=== PATIENT | female | born 1995 | race Caucasian/White ===

== ENCOUNTER 2024-05-30 08:50 | Inpatient (IN) | payer BC ==
[~2024-05-30] VITALS: Ht 162.6 cm; Wt 84.1 kg
[2024-05-30] VITALS (25 sets, daily range): BP systolic 91–160; BP diastolic 43–85; PULSE 58–95; TEMP 97.4–98.5
--- NOTE | 2024-05-30 08:55 | NUR ---
PT ARRIVES UNDER CARE OF GIACOMO (PUPPY WALKER), ATTEMPTING A HOME , BUT REQUESTING TO BE ADMITTED FOR AN EPIDURAL. 38.2. G1 L0. GBS-, LABS AVAILABLE UPON ARRIVAL. CATEGORY 1 EFM TRACING. ALVINA Q2 MINUTES. REPORTS SROM ON 05/29/24 @ 0200, CLEAR FLUID. LABS NORMAL. AVAILABLE UPON ARRIVAL. NOTIFIED, SEE PHYS NOTIFICATION.
[2024-05-30] MEDS ORDERED: ZOLOFT 50MG50 MG PO (09:01)
[2024-05-30] MEDS ORDERED: PRENATAL (09:01)
[2024-05-30] MEDS ORDERED: LR 1,000 ML IV SCH (09:15)
[2024-05-30 09:25] LABS: BASO % 0.2 % (0.0-2.0); EOS % 0.1 % (0.0-4.0); GRAN % 83.8 % (42.2-75.2); HEMATOCRIT 42.5 % (37.0-47.0); HEMOGLOBIN 14.2 g/dl (12.5-16.0); LYMPH # 1.3 K/mm3 (1.2-3.4); LYMPH % 9.6 % (20.0-51.0); MEAN CELL VOLUME 91 fl (80.0-100.0); MEAN CORPUSCULAR HEMOGLOBIN 30 pg (27-31); MEAN CORPUSCULAR HGB CONC 33 g/dl (33.0-37.0); MEAN PLATELET VOLUME 10.4 fl (7.4-10.4); MONO # 0.8 K/mm3 (0.1-0.6); MONO % 5.8 % (1.7-9.3); PLATELET COUNT 240 K/mm3 (130-400); RED BLOOD COUNT 4.67 M/mm3 (4.10-5.30); REDCELL DISTRIBUTION WIDTH-CV 12.7 % (11.5-14.5)
[2024-05-30] MEDS ORDERED: Ondansetron 4 MG/2 ML VIAL IV SCH (09:31)
[2024-05-30] MEDS ORDERED: ROPivacaine PF 0.2% 200 ML IV ONE (09:33)
--- NOTE | 2024-05-30 09:47 | NUR ---
PT TO SITTING POSITION FOR EPIDURAL PLACEMENT. JUANITA LAMAS MERCHANDISE FLOW TEAM LEADER AT BEDSIDE. DIFFICULTY TRACING EFM DUE TO MATERNAL POSITIONING 0947: TEST DOSE PER JUANITA MERCHANDISE FLOW TEAM LEADER. PT TOLERATED PROCEDURE WELL. LR BOLUS INFUSING. VSS.
[2024-05-30] MEDS ORDERED: Ondansetron 4 MG/2 ML VIAL IV PRN (10:15)
[2024-05-30] MEDS ORDERED: ePHEDrine 50 MG/10 ML VIAL IV PRN (10:15)
[2024-05-30] MEDS ORDERED: diphenhydrAMINE 50 MG/ML 1 ML VIAL IV PRN (10:15)
[2024-05-30] MEDS ORDERED: Naloxone 0.4 MG/ML VIAL IV PRN ×2 (10:15→14:45)
[2024-05-30] MEDS ORDERED: diphenhydrAMINE 25 MG CAP PO PRN (10:15)
[2024-05-30] MEDS ORDERED: Penicillin G Potassium 5,000,000 UNITS in NS 100 ML IV ONE (11:00)
--- NOTE | 2024-05-30 11:17 | NUR ---
PT REPORTS HX MARIJUANA USE PRIOR TO . UDS SENT TO LAB, PENDING.
[2024-05-30 12:57] LABS: TRICYCLIC ANTIDEPRESS URINE NEGATIVE (NEGATIVE)
[2024-05-30] MEDS ORDERED: LR & Oxytocin 500 ML IV SCH (13:15)
--- NOTE | 2024-05-30 13:51 | NUR ---
1245: PT COMPLETE/+1. COACHED ON PUSHING EFFORTS, MOVES HEAD WELL. ALL APPROPRIATE STAFF NOTIFIED. ROOM PREPARED FOR DELIVERY. MATERNAL VITAL SIGNS STABLE. CATEGORY 1 EFM. CONTRACTIONS REGULAR AND FIRM WITH PALPATION. 1351: OF VIABLE MALE INFANT PER AT THIS TIME. STRONG CRY NOTED, PLACED ON MATERNAL ABDOMEN AND CARE OF ASSUMED BY YAHIR PATTON. UPON PULSATION, CORD CLAMPED X2 AND CUT BY FOB. CORD SEGMENT SAVED AND SENT TO LAB FOR HX.MARIJUANA USE, WELL MATERNAL UDS PRIOR TO DELIVERY. LOCHIA MODERATE. 1356. OF PLACENTA PER . PITOCIN BOLUS INFUSING PER PROTOCOL. FUNDUS FIRM, WITH INTERMITTENT MODERATE LOCHIA. BEGINS REPAIR OF SECOND DEGREE PERINEAL LACERATION. 1406: VORB FOR IM METHERGINE ADMINISTRATION. MATERNAL VITAL SIGNS STABLE. METHERGINE ADMINISTERED AT 1406. MATERNAL VITAL SIGNS REMAIN STABLE, PT TOLERATING PERINEAL REPAIR AND BLOOD LOSS WELL, ASYMPTOMATIC AT THIS TIME. WILL CONTINUE WITH PP CARES PER PROTOCOL.
[2024-05-30] MEDS ORDERED: Methylergonovine 0.2 MG/ML 1 ML AMPUL IM SCH (14:06)
[2024-05-30] MEDS ORDERED: Witch Hazel 50% Pads Bulk TUB TP PRN (14:45)
[2024-05-30] MEDS ORDERED: Mag/Al Hydrox/Simeth Susp 30 ML CUP PO PRN (14:45)
[2024-05-30] MEDS ORDERED: Ibuprofen 800 MG TAB PO SCH (14:45)
[2024-05-30] MEDS ORDERED: Phenylephrine/Mineral Oil/Petrolatum 57 GM TUBE RC PRN (14:45)
[2024-05-30] MEDS ORDERED: Acetaminophen 500 MG TAB PO SCH (14:45)
[2024-05-30] MEDS ORDERED: Loratadine 10 MG TAB PO PRN (14:45)
[2024-05-30] MEDS ORDERED: Magnes Hydrox (MOM) 80 MG/ML 30 ML CUP PO PRN (14:45)
[2024-05-30] MEDS ORDERED: Measles/Mumps/Rubella Virus Vaccine Live w Diluent 0.5 ML VIAL SQ SCH (14:45)
[2024-05-30] MEDS ORDERED: Penicillin G Potassium 2,500,000 UNITS in NS 100 ML IV SCH (14:54)
[2024-05-30] MEDS ORDERED: Sennosides/Docusate 8.6-50 MG TAB PO SCH (17:00)
[2024-05-30] MEDS ORDERED: Sertraline 25 MG TAB PO SCH (21:00)
[2024-05-30] MEDS ORDERED: traZODone 50 MG TAB PO PRN (21:00)
[2024-05-31 01:00] VITALS: BP 112/81; PULSE 83; TEMP 97.7
[2024-05-31 08:30] VITALS: BP 110/65; PULSE 68; TEMP 98.3
[2024-05-31] MEDS ORDERED: IBU800 M1 PO (10:52)
--- NOTE | 2024-05-31 14:32 | NUR ---
sail lay out worker received consult for mother testing positive for barbituates. GLENIS spoke with RN Susan to obtain more information on this. She reports pt has no history of this, she has no concerns, and this was sent to [place] for review as it is believed to be a false positive. RN reports mother admitted to not even being one to take NSAIDS. GLENIS spoke with Dr. Sierra regarding this and if there are concerns. She reports no concerns from Dr. Montanez who had pt yesterday. She states there should be "no reason" for it to be positive. She informs SW of pt having a history of marijuana use and her UDS was negative. Cord blood in infant is pending. SW met with pt and her partner, Chriss. Pt confirmed she lives in [place], verified her number, and reports her insurance as [employer] and Medicaid. She states she works from home and intends to go back to work. She states , Nav will stay home with her. She has her own car for transportation. Pt reports she has a good support system. She has a carseat in the car and also has two bases. She has a crib and bassinet. Pt reports enough diapers/wipes and clothes. She states she has discussed with the regional engagement consultant, has a PP contract officer, and is scheduled to see a therapist in May to check-in on her due to anxiety. She reports to not be on WIC or food stamps. She has no MH/KATHERYN concerns. She is breast feeding and has a pump. She sees her contract officer, juan diego grimaldo and Dr. Craven. She is still looking into a piercing specialist, but reports her partner has a child and she intends to take Nav there too. Pt reports this is her first child. Wade reports no further needs and intends to discharge tomorrow.
[2024-05-31 16:00] VITALS: BP 116/72; PULSE 65; TEMP 98
[2024-05-31 20:00] VITALS: BP 119/64; PULSE 88; TEMP 98.5
--- NOTE | 2024-06-01 11:20 | NUR ---
DISCHARGE INSTRUCTIONS REVIEWED WITH PT REGARDING FOLLOW-UP, WOUND CARE, PAIN MANAGEMENT, AND REASONS TO SEE/CALL PHYSICIAN. QUESTIONS INVITED AND ANSWERED. PT VERBALIZES UNDERSTANDING.
== END 2024-06-01 11:30 | disposition home or self-care (01) | DRG 807 ==
LOC: LDRO 08:50 → LDR 09:08 → EDSTATUS 09:27 → OB 17:00
PROVIDERS: ADMIT Student in an Organized Health Care Education/Training Program
PROC: 10E0XZZ Delivery of Products of Conception, External Approach (ICD-10-PCS; principal; 2024-05-30)
PROC: 0KQM0ZZ Repair Perineum Muscle, Open Approach (ICD-10-PCS; 2024-05-30)
PROC: 0UQMXZZ Repair Vulva, External Approach (ICD-10-PCS; 2024-05-30)
DX: O99.344 Other mental disorders complicating childbirth (principal); Z37.0 Single live birth; F41.9 Anxiety disorder, unspecified; O99.02 Anemia complicating childbirth; D64.9 Anemia, unspecified; M41.9 Scoliosis, unspecified; O76 Abnormality in fetal heart rate and rhythm complicating labor and delivery; O99.892 Other specified diseases and conditions complicating childbirth; Z3A.38 38 weeks gestation of pregnancy; Z86.16 Personal history of COVID-19; O70.1 Second degree perineal laceration during delivery; O75.89 Other specified complications of labor and delivery
CPT/HCPCS: J2210; J2405; J2540; J2590; J2795; J7120